=== PATIENT | female | born 1940 | race Hispanic/Latino ===

== ENCOUNTER 2017-08-15 14:56 | Outpatient (CLI) | payer MEDICARE ==
--- NOTE | 2017-08-15 15:37 | XRay Report ---
CHEST TWO VIEWS: 08/15/17 14:56:00 CLINICAL: Dyspnea on exertion COMPARISON: 10/24/14 FINDINGS: Normal heart and pulmonary vasculature. The lungs are normally expanded and clear. No airspace disease or pleural effusion.Mild degenerative change of the spine. IMPRESSION: No acute cardiopulmonary process.
== END 2017-08-15 14:57 | disposition home or self-care (01) ==
LOC: SPVIMAG 14:56
PROVIDERS: ATTEND Internal Medicine
DX: R06.09 Other forms of dyspnea (principal)
CPT/HCPCS: 71046